=== PATIENT | male | born 1970 | race Caucasian/White ===

== ENCOUNTER 2017-01-07 09:04 | Outpatient (CLI) | payer OTHER ==
--- NOTE | 2017-01-07 17:25 | ULT ---
ULTRASOUND OF THE RIGHT UPPER EXTREMITY NONVASCULAR 01/07/17 Ultrasonography of the right triceps area was done for this patient carrying a diagnosis of right tr iceps strain. Documentary images and worksheets were provided and reviewed. No focal abnormality was seen. There was no fluid collection or other sign of hematoma. No other ite ms of concern were found. IMPRESSION: No significant finding. POS: HOME
== END 2017-01-07 09:05 | disposition home or self-care (01) ==
LOC: BURULT 09:04
PROVIDERS: ATTEND Physician Assistant
DX: S46.312A Strain of muscle, fascia and tendon of triceps, left arm, initial encounter (principal)
CPT/HCPCS: 76881

== ENCOUNTER 2017-02-04 10:09 | Outpatient (CLI) | payer OTHER ==
--- NOTE | 2017-02-04 20:18 | RAD ---
RIGHT SHOULDER THREE VIEWS 02/04/17 No fracture, dislocation, or joint abnormality was seen. The AC joint is not widened. There are no p eriarticular calcifications. There may be the beginnings of a little bony spurring at the end of the clavicle. IMPRESSION: No acute bony finding. POS: HOME
== END 2017-02-04 10:10 | disposition home or self-care (01) ==
LOC: BURRAD 10:09
PROVIDERS: ATTEND Family Medicine
DX: M25.511 Pain in right shoulder (principal)